=== PATIENT | male | born 1995 | race Caucasian/White ===

== ENCOUNTER 2023-05-08 20:16 | Emergency (ER) | payer MEDICAID, SELFPAY ==
--- NOTE | 2023-05-08 | ECG_ITS ---
Test Reason : seizure Blood Pressure : / mmHG Vent. Rate : 083 BPM Atrial Rate : 083 BPM P-R Int : 154 ms QRS Dur : 094 ms QT Int : 374 ms P-R-T Axes : 048 033 033 degrees QTc Int : 439 ms Normal sinus rhythm Normal ECG No previous ECGs available Referred By: Generic ED Physician Electronically Signed By:DAPHNIE BALDERAS MD
--- NOTE | ~2023-05-08 | CT_ITS ---
EXAMINATION: CT HEAD WITHOUT CONTRAST CLINICAL INFORMATION: Fall, head strike. COMPARISON: None TECHNIQUE: Contiguous axial imaging was performed from the skull base to vertex without intravenous administration of contrast. This CT examination was performed using dose optimization techniques as appropriate, variously including the following: *Automated exposure control *Adjustment of mA and/or kV according to patient size (this includes techniques or standardized protocols for targeted exams where dose is matched to indication/reason for exam; i.e. extremities or head) *Use of iterative reconstruction technique DLP: 675 mGy-cm FINDINGS: There is no evidence of acute intracranial hemorrhage or edematous territorial infarction. There is no abnormal attenuation within the brain parenchyma. Nunez-white matter differentiation is preserved. The ventricles are normal in size and configuration. No evidence for obstructive hydrocephalus. No abnormal mass effect or midline shift. Prominence CSF attenuating structure in the right inferior temporal lobe measuring 4.2 x 2.5 cm in axial image 10 series 2 most consistent with an arachnoid cyst. Small calcification in the left cerebellum, also axial image 10 series 2. Scalp laceration and hematoma in the left forehead. The mastoid air cells and paranasal sinuses are clear. CT/CT head/brain wo IV con IMPRESSION: 1. Scalp laceration and hematoma in the left forehead. 2. No acute intracranial abnormalities.
[2023-05-08 21:09] VITALS: BP 145/90; PULSE 93; RESP 20; TEMP 36.3; O2SAT 97; BMI 32.3
[2023-05-08 21:43] LABS: Basophils Absolute Auto 0.1 X10*3/uL (0.0-0.2); Basophils Percent Auto 0.2 % (0-2); Hematocrit 45.3 % (42.0-52.0); Hemoglobin 16.2 g/dl (14.0-18.0); Imm Gran Abs Auto 0.22 X10*3/uL (0.00-0.03); Imm Gran Pct Auto 0.9 % (0.0-0.4); Lymphocytes Absolute Auto 1.3 X10*3/uL (1.2-4.9); Lymphocytes Percent Auto 5.1 % (20-40); MANUAL DIFF FLAG SCAN; Mean Corpuscular HGB Conc 35.8 g/dl (31.0-36.0); Mean Corpuscular Hemoglobin 31.6 pg (27.0-33.0); Mean Corpuscular Volume 88.5 fL (80.0-98.0); Mean Platelet Volume 10.9 fL (9.4-12.4); Monocytes Absolute Auto 1.8 X10*3/uL (0.1-1.2); Monocytes Percent Auto 6.8 % (2-11); Neutrophils Absolute Auto 22.4 x10*3/uL (2.0-8.3); Platelet Count 238 X10*3/uL (160-400); Red Blood Count 5.12 X10*6/uL (4.60-5.80); Red Cell Distribution Width 12.6 % (11.0-16.0); SCAN SMEAR FLAG 1; White Blood Count 25.8 X10*3/uL (4.8-10.8)
[2023-05-08 21:48] VITALS: BP 149/85; PULSE 85; RESP 20; TEMP 36.8; O2SAT 99
[2023-05-08 22:06] LABS: Alanine Aminotransferase 82 U/L (0-40); Albumin Level 4.9 g/dL (3.5-5.0); Alkaline Phosphatase 73 U/L (39-117); Anion Gap 20 (12-20); Aspartate Amino Transferase 41 U/L (5-37); Bilirubin Total 0.3 mg/dL (0.0-1.0); Blood Urea Nitrogen 13 mg/dL (9-16); Calcium 10.1 mg/dL (8.4-10.2); Carbon Dioxide 20 mmol/L (22-29); Chloride 103 mmol/L (96-108); Estimated Glomerular Filt Rate > 60; Glucose Random 98 mg/dL (60-115); Potassium 4.3 mmol/L (3.3-5.1); Sodium 139 mmol/L (135-145); Total Protein 8.4 g/dL (6.5-8.0)
[2023-05-08 22:19] LABS: SLIDE REVIEW VERIFIED
--- NOTE | 2023-05-08 22:45 | ED_ITS ---
HPI - Seizure General Chief Complaint: Seizure Stated Complaint: hx of epilepsy: 2 seizures 2 hrs ago, eyebrow lac Time Seen by Provider: 05/08/23 22:22 Source: patient and family Mode of arrival: ambulatory Limitations: no limitations History of Present Illness HPI Narrative: 28 yo male with PMH of epilepsy on zonisamide and depakote who is not compliant and did not take his meds the last couple of days. Presents s/p 2 seizures at home 1st one at 630pm with headstrike and laceration to L eyebrow, 2nd seizure at 7pm. He c/o tongue abrasions as well. Mom and him note he has seizures frequently. He notes he doesn't always remember to take his medications MD complaint: seizure Onset (ago): hour(s) (630pm) Description of Episode: loss of consciousness and tonic-clonic movement -: minutes(s) Witnessed: Yes - by Bystander Trauma: Yes Seizure History: Yes Place: Home Possible Precipitating Event: medication Associated symptoms: other (head laceration) Treatments prior to arrival: none Related Data Allergies Allergy/AdvReac Type Severity Reaction Status Date / Time No Known Allergies Allergy Verified 05/08/23 21:09 Review of Systems 2 Review of Systems: Constitutional : No Fever, No Chills, No Fatigue ENT/Mouth : No sore throat, No Rhinorrhea Eyes: No Eye Pain, No Swelling, No Redness Cardiovascular : No Chest Pain, No SOB, No Dyspnea on Exertion Respiratory : No Cough, No Sputum Gastrointestinal : No Nausea, No Vomiting, No Diarrhea, No abdominal Pain Genitourinary : No Dysuria, No Urinary Frequency, No Hematuria, Musculoskeletal : No joint pain, No Myalgias, No Joint Swelling Skin : No Skin Lesions, No rash, pos laceration Neuro : No Weakness, No Numbness, No Dizziness, positive Headache, pos seizure Psych : No Anxiety/Panic, No Depression Heme/Lymph: No Bruising, No Bleeding,No Lymphadenopathy Endocrine : No Polyuria, No Polydipsia All other systems reviewed and are negative [facility] Past Medical History Medical History Seizures Social History Social History (Updated 05/08/23 @ 22:46 by Kami Amaya DO) Patient Tobacco Use Status: Never used Tobacco Advance Directives: No Advance Directives Information Provided: Yes Physical Exam 2 Vital Signs: Vital Signs: Last Vital Signs Temp 98 F 05/09/23 01:26 Pulse 90 05/09/23 01:26 Resp 18 05/09/23 01:26 BP 131/77 05/09/23 01:26 Pulse Ox 100 05/09/23 01:26 O2 Del Method Room Air 05/09/23 01:26 BMI result Body Mass Index 32.3 Appearance: Alert. Oriented X3. No acute distress. Eyes: Pupils equal, round and reactive to light. ENT: Pharynx normal. no solorio sign or racoon eyes - he has 4cm laceration to left eyebrow down to subq, small abrasion no bleeding R side of tongue Neck: Normal inspection. Neck supple. CVS: Normal heart rate and rhythm. Pulses normal. Respiratory: No respiratory distress. Breath sounds normal. Abdomen: Soft and nontender. Skin: Skin warm and dry. Normal skin color. Normal skin turgor. Extremities: No lower extremity edema. No calf ttp Neuro: Oriented X 3. No motor deficit. No sensory deficit. Medications Administered Discontinued Medications Generic Name Dose Route Start Last Admin Trade Name Сергейq PRN Reason Stop Dose Admin Bacitracin 1 appl 05/09/23 00:29 05/09/23 00:51 Bacitracin Oint 0.9 Gm Packet TOPICAL 05/09/23 00:30 1 appl ONCE ONE Administration Protocol Diphtheria/Tetanus/Acell Pertussis 0.5 ml 05/09/23 00:29 05/09/23 00:51 Diphth,Pertus(Acell),Tet Adult 0.5 Ml Syringe IM 05/09/23 00:30 0.5 ml .ONCE ONE Administration Divalproex Sodium 250 mg 05/08/23 22:37 05/08/23 22:58 Divalproex Sodium Er 250 Mg Tab.Er.24h PO 05/08/23 22:38 250 mg ONCE ONE Administration Sodium Chloride 1,000 mls @ 999 mls/hr 05/08/23 22:45 05/09/23 00:29 Ns IV 05/08/23 23:45 Infused .Q1H1M DARRICK Infusion Lidocaine HCl 5 ml 05/08/23 22:39 05/09/23 00:28 Lidocaine Hcl 1 % Mpf 5 Ml Vial SUBCUT 05/08/23 22:40 Not Given ONCE ONE Lorazepam 1 mg 05/08/23 22:39 05/08/23 22:49 Lorazepam 2 Mg/Ml Vial IVPUSH 05/08/23 22:40 1 mg STAT STA Administration Zonisamide 400 mg 05/08/23 22:37 05/08/23 22:54 Zonisamide 100 Mg Capsule PO 05/08/23 22:38 400 mg ONCE ONE Administration Medical Decision Making Medical Decision Making [facility] Narrative: 28 yo male with PMH of seizures who had two tonight at home with head injury and L eyebrow laceration he is not compliant with his medications will need basic labs, CT head for ICH, repair of laceration, PO seizure mediactions and IV ativan. Mom at bedside. He is back to baseline now. Differential Diagnosis Differential Diagnoses: The differential diagnosis associated with the presentation includes seizure, med non compliance Admission/Observation Consideration of admission/observation: Escalation of care including admission/observation considered observed 5 hours at baseline feels better at baseline stable for DC they want to go home aware of WBC count Lab Data [facility] Lab Attestation statement: I reviewed the patient's lab results. will repeat CBC after fluids likely due to seizure 05/09/23 00:52 05/08/23 21:35 Labs: Lab Results 05/08/23 05/09/23 Range/Units 21:35 00:52 WBC 25.8 H 21.0 H (4.8-10.8) X10*3/uL RBC 5.12 4.74 (4.60-5.80) X10*6/uL Hgb 16.2 14.9 (14.0-18.0) g/dl Hct 45.3 41.3 L (42.0-52.0) % MCV 88.5 87.1 (80.0-98.0) fL MCH 31.6 31.4 (27.0-33.0) pg MCHC 35.8 36.1 H (31.0-36.0) g/dl RDW 12.6 12.4 (11.0-16.0) % Plt Count 238 235 (160-400) X10*3/uL MPV 10.9 10.4 (9.4-12.4) fL Immature Gran % (Auto) 0.9 H (0.0-0.4) % Neut % (Auto) 87.0 H (45-73) % Lymph % (Auto) 5.1 L (20-40) % [place] % (Auto) 6.8 (2-11) % Eos % (Auto) 0.0 (0-4) % Baso % (Auto) 0.2 (0-2) % Lymph # (Auto) 1.3 (1.2-4.9) X10*3/uL [place] # (Auto) 1.8 H (0.1-1.2) X10*3/uL Eos # (Auto) 0.0 (0.0-0.4) X10*3/uL Baso # (Auto) 0.1 (0.0-0.2) X10*3/uL Abs Immat Gran (auto) 0.22 H (0.00-0.03) X10*3/uL Absolute Neuts (auto) 22.4 H (2.0-8.3) x10*3/uL Absolute Nucleated RBC 0.000 0.000 (0.0-0.012) X10*3/uL Nucleated RBC % (auto) 0.0 0.0 (0.0-0.2) /100WBC Smear Tech's Comments VERIFIED Sodium 139 (135-145) mmol/L Potassium 4.3 (3.3-5.1) mmol/L Chloride 103 (96-108) mmol/L Carbon Dioxide 20 L (22-29) mmol/L Anion Gap 20 (12-20) BUN 13 (9-16) mg/dL Creatinine 1.33 (0.5-1.4) mg/dL Estim Creat Clear Calc 108.0 Estimated GFR > 60 Random Glucose 98 (60-115) mg/dL Calcium 10.1 (8.4-10.2) mg/dL Total Bilirubin 0.3 (0.0-1.0) mg/dL AST 41 H (5-37) U/L ALT 82 H (0-40) U/L Alkaline Phosphatase 73 (39-117) U/L Total Protein 8.4 H (6.5-8.0) g/dL Albumin 4.9 (3.5-5.0) g/dL Valproic Acid < 12.5 L (50.0-100.0) mcg/mL Independent Interpretation I performed an independent interpretation of an: EKG and CT Scan (no ICH) Interpretation: Rate: 83 Rhythm: NSR Halliday: normal Normal P waves. Normal DOUGLAS. Normal QRS complex. ST T wave : normal no KATEY qTC: 439 prior studies: no acute ischemia The study has been interpreted contemporaneously by me. . Radiology Impression Discussion of test interpretation with radiology: I have reviewed the radiologist's reading. Procedures Laceration Laceration 1: Site: face Side (If applicable): left Size (cm): 4 Description: linear Depth: simple, single layer Local Anesthetic: lidocaine 1% Amount of anesthesia used (mL): 4 Pre-repair: wound explored, irrigated extensively and deep structures intact Skin layer closed with: vicryl Size (cm): 5-0 Number of sutures: 6 Technique: simple, interrupted Subcutaneous layer closed with: other (polysorb) Size: 5-0 Number of sutures: 2 Technique: simple, interrupted Critical Care Time Critical Care Time Critical Care Time: Yes Total Critical Care Time: 45 Attestation: IV ativan, repeat assessments, repeat labs I attest to this time spent taking care of the patient Discharge Plan Discharge Clinical Impression: Epileptic seizure Head injury Qualifiers: Encounter type: initial encounter Qualified Code(s): S09.90XA - Unspecified injury of head, initial encounter Facial laceration Qualifiers: Encounter type: initial encounter Qualified Code(s): S01.81XA - Laceration without foreign body of other part of head, initial encounter Patient Disposition: Home, Self-Care Instructions: Laceration (ED), Head Injury (ED), Epilepsy (ED) Additional Instructions: okay to shower monitor for redness, swelling, fevers take your seizures medications sutures out in 7 days return for repeat seizures, confusion, or any other concerns. your white blood cell count was high this was possibly due to the seizure return for fevers or any infectious symptoms Stand Alone Forms: Work/School Release Interventions: ED Discharge Assessment Last Done: 05/09/23 01:26 Discharge Date/Time: 05/09/23 01:28 Print Language: Irish
[2023-05-08] MEDS: LORazepam 2 MG/ML VIAL 1 MG IVPUSH (22:49)
[2023-05-08] MEDS: 0.9 % Sodium Chloride 1,000 ML 999 ML IV (22:50)
[2023-05-08] MEDS: Zonisamide 100 MG CAPSULE 400 MG PO (22:54)
[2023-05-08] MEDS: Divalproex Sodium ER 250 MG TAB.ER.24H PO (22:58)
--- NOTE | 2023-05-08 23:02 | PC.NURSE ---
Pt medicated per APR, 08/03 pain in head and legs from seizure and fall. Lidcaine pulled and given to Gisel DEWITT for sutures. Report given to Gisel
[2023-05-08 23:44] VITALS: BP 131/77; PULSE 98; RESP 16; TEMP 37.1; O2SAT 97
[2023-05-09] MEDS: Bacitracin Oint 0.9 GM PACKET 1 APPL TOPICAL (00:51)
[2023-05-09] MEDS: Diphth,Pertus(ACell),Tet Adult 0.5 ML SYRINGE IM (00:51)
[2023-05-09 00:56] LABS: Hematocrit 41.3 % (42.0-52.0); Hemoglobin 14.9 g/dl (14.0-18.0); Mean Corpuscular HGB Conc 36.1 g/dl (31.0-36.0); Mean Corpuscular Hemoglobin 31.4 pg (27.0-33.0); Mean Corpuscular Volume 87.1 fL (80.0-98.0); Mean Platelet Volume 10.4 fL (9.4-12.4); Platelet Count 235 X10*3/uL (160-400); Red Blood Count 4.74 X10*6/uL (4.60-5.80); Red Cell Distribution Width 12.4 % (11.0-16.0)
[2023-05-09 01:20] LABS: Valproate < 12.5 mcg/mL (50.0-100.0)
[2023-05-09 01:26] VITALS: BP 131/77; PULSE 90; RESP 18; TEMP 36.6; O2SAT 100
== END 2023-05-09 01:28 | disposition home or self-care (01) ==
PROVIDERS: Emergency Provider Emergency Medicine
DX: S01.81XA Laceration without foreign body of other part of head, initial encounter (principal); S00.81XA Abrasion of other part of head, initial encounter; R56.9 Unspecified convulsions; R51.9 Headache, unspecified; W01.10XA Fall on same level from slipping, tripping and stumbling with subsequent striking against unspecified object, initial encounter; Y93.9 Activity, unspecified; Y92.9 Unspecified place or not applicable; Y99.8 Other external cause status; Z79.899 Other long term (current) drug therapy; Z23 Encounter for immunization
CPT/HCPCS: 12013; 36415; 70450; 80053; 80164; 85025; 85027; 90471; 90715; 93005; 96361; 96374; 99284; J2060

== ENCOUNTER → 2023-05-08 21:53 | Outpatient (BNV) | payer MEDICAID, SELFPAY | PROVIDERS: Emergency Provider Emergency Medicine; Visit Provider Internal Medicine Cardiovascular Disease | DX: R56.9 Unspecified convulsions (principal) | CPT/HCPCS: 93010 ==